=== PATIENT | female | born 1975 | race Two or more races ===

== ENCOUNTER 2018-03-30 01:03 | Emergency (ER) | payer OTHER ==
[~2018-03-30] VITALS: Ht 154.9 cm; Wt 92.3 kg
[~2018-03-30 01:03] MED LIST: ABILIFY2 MG PO; Ascorbic Acid,Ester- PO; Bactrim,Septra DS 80 PO; CONCERTA36 MG PO; CYMBALTA30 MG PO; DOCUSATE SODIU100 MG PO; FERROUS SULFAT325 MG PO; FLEXERIL10 MG PO; FLUOXETINE HCL20 MG PO; Feosol PO; GEODON40 MG PO; HYDROCODON-ACE1 EAC7 PO; IBUPROFEN600 MG PO; IBUPROFEN800 MG PO; INVanz IV; LITHIUM CARBON300 MG PO; NOHOMEMEDS; OXYCODONE-APAP1 EACH PO; PROAIR HFA8.5 GM IH; Percocet 5/325,Endoc PO; Proventil,Ventolin H IH; SEROQUEL XR150 MG PO; VENTOLIN HFA18 GM IH; VITAMIN C500 M1 PO; ZOFRAN4 MG PO; ZYVOX600 MG PO; Zyvox PO; lithium; oxyCODONE PO; prozac
[2018-03-30] MEDS ORDERED: AUGMENTIN875 MG PO (04:00)
[2018-03-30] MEDS ORDERED: MOTRIN800 MG PO (04:00)
[2018-03-30 04:40] VITALS: BP 153/81
== END 2018-03-30 04:46 | disposition home or self-care (01) ==
LOC: EME 01:03
DX: F41.9 Anxiety disorder, unspecified (principal); J02.9 Acute pharyngitis, unspecified; I10 Essential (primary) hypertension; F31.9 Bipolar disorder, unspecified; F17.200 Nicotine dependence, unspecified, uncomplicated; Z90.2 Acquired absence of lung [part of]
CPT/HCPCS: 71045; 87651 90; 94640; 99281; 99283; J1100